=== PATIENT | female | born 1945 | race Caucasian/White ===

== ENCOUNTER 2016-10-05 09:20 | Inpatient (IN) | payer MEDICARE ==
[~2016-10-05] VITALS: Ht 165.1 cm; Wt 119.1 kg
[~2016-10-05 09:20] MED LIST: BAYER CHEWABLE81 MG PO; BRILINTA90 MG PO; CALAN80 MG PO; FIRST-TESTOSTER60 G1 TP; LASIX40 MG PO; LEVAQUIN750 MG PO; LISINOPRIL10 MG PO; MEDROL DOSE PACK4 MG PO; PRILOSEC10 MG PO; SYMBICORT 16010.2 GM INH
[2016-10-05 10:37] LABS: BASOPHILS 0.5 % (0.0-2.0); EOSINOPHILS 3.4 % (0-7); HEMATOCRIT 40.6 % (36.0-48.0); HEMOGLOBIN 13.2 g/dL (12-16); IMMATURE GRANULOCYTES 0.2 % (0-5); LYMPHOCYTES 16.6 % (15-50); MCH 30.6 pg (26.0-34.0); MCHC 32.5 g/dL (31.0-37.0); MEAN PLATELET VOLUME 9.8 fL (7.4-10.4); MONOCYTES 11.4 % (2-11); NEUTROPHILS 67.9 % (40-80); PLATELET COUNT 169 10x3/uL (130-400); RBC 4.32 10x6/uL (4.00-5.40); WBC 4.4 10x3/uL (4.8-10.8)
[2016-10-05 11:03] LABS: ALBUMIN 3.6 g/dL (3.4-5.0); ALKALINE PHOSPHATASE 105 U/L (46-116); ALT (SGPT) 38 U/L (10-68); CALC OSMOLALITY 281 mosm/kg (275-300); CARBON DIOXIDE 30.3 mmol/L (21.0-32.0); CHLORIDE - SERUM 105 mmol/L (98-107); CREATININE - SERUM 0.8 mg/dL (0.6-1.3); GLUCOSE 93 mg/dL (74-106); POTASSIUM - SERUM 3.9 mmol/L (3.5-5.1); PROTEIN - SERUM 7.6 g/dL (6.4-8.2); SODIUM 142 mmol/L (136-145); UREA NITROGEN 10 mg/dL (7-18); eGFR NON AFRICAN AMERICAN 75 mL/min (90-120)
[2016-10-05 11:28] LABS: PRO BNP 93 pg/mL (0-125); TROPONIN-I < 0.017 ng/mL (0.000-0.060)
--- NOTE | 2016-10-05 14:24 | NUR ---
ALERT AND ORIENTED X4. ARRIVE TO ROOM VIA WHEELCHAIR FROM ER ACCOMPANIED BY FAMILY AND STAFF. AMBULATES TO BED WITH OUT ASSISTANCE. GAIT STEADY. O2 SAT DROPS TO HIGH 80s WHEN STANDING. COMPLAINS OF HEADACHE AND PRESSURE IN CHEST. SOLUMEDROL GIVEN IN ER. IV RT HAND SL. CONTINUE ADMISSION PROCESS.
[2016-10-05 15:15] VITALS: BP 151/71; BMI 43.1
[2016-10-05 16:12] VITALS: BP 151/76
[2016-10-05 20:00] VITALS: BP 155/76
[2016-10-06] VITALS: BP 104/57
[2016-10-06 07:58] VITALS: BP 145/71
--- NOTE | 2016-10-06 11:41 | NUR ---
Patient Name: KAREEM BOOGIE Admission Status: ER Accout number: [id number] Admission Date: 10-05-2016 : 1945 Admission Diagnosis: Attending: KATJA Current LOS: 1 Anticipated DC Date: Planned Disposition: Home Primary Insurance: MEDICARE A & B Discharge Planning Comments: * Is the patient Alert and Oriented? Yes 0 * How many steps to enter\exit or inside your home? 4 W/RAILS 0 * PCP DR. CARRION 0 * Pharmacy [facility] 0 * Preadmission Environment Home with Family 0 * ADLs Independent 0 * Equipment Nebulizer Oxygen 0 Walker 0 * Other Equipment PORTABLE OXYGEN ONLY [employer]MENT PROVID[employer] 0 * List name and contact numbers for known caregivers / representatives who currently or will assist patient after discharge: DANIA VALDEZ, DAUGHTER, QUINN MEZA, DAUGHTER, 0 * Community resources currently utilized None 0 * Please name any agencies selected above. NONE 0 * Additional services required to return to the preadmission environment? No 0 * Can the patient safely return to the preadmission environment? Yes 0 * Has this patient been hospitalized within the prior 30 days at any hospital? No 0 CM MET WITH PT IN ROOM TO DISCUSS DISCHARGE PLANNING AND NEEDS. PT REPORTS LIVING AT HOME INDEPENDENTLY WITH HER ADULT DAUGHTER. PT HAS A WALKER, NEBULIZER AND PORTABLE OXYGEN PROVIDED BY [employer]. PT HAS HAD AN OVERNIGHT PULSE OXIMETRY TEST BY [employer] TO SEE IF PT QUALIFIES FOR HOME OXYGEN CONCENTRATOR AND SHE IS WAITING ON THE RESULTS TO BE DOWNLOADED FROM THE TEST. PT DID HAVE [facility] BUT ADMITTED TO HOSPITAL ON THE DAY OF HER HOME HEALTH DISCHARGE. CM DISCUSSED AVAILABILITY OF HOME HEALTH, REHAB SERVICES AND MEDICAL EQUIPMENT. PT DENIES DISCHARGE NEEDS, REPORTS THAT SHE DID NOT FIND HOME HEALTH TO BE HELPFUL. PT REPORTS SONE OF HER DAUGHTERS WILL PICK HER UP FOR DISCHARGE HOME. PT PLANS TO DISCHARGE HOME WITH ASSISTANCE OF DAUGHTER, DENIES DISCHARGE NEEDS AT THIS TIME. CM TO FOLLOW AND ASSIST NEEDED. Clinical Data Assistant: Raman Johnson
[2016-10-06 12:18] VITALS: BP 111/46
[2016-10-06 12:33] VITALS: Ht 165.1 cm; Wt 119.1 kg
[2016-10-06 16:16] VITALS: BP 131/57
[2016-10-06 21:15] VITALS: BP 134/66
[2016-10-06 23:00] VITALS: BP 115/55
--- NOTE | 2016-10-07 07:45 | NUR ---
INTRODUCED MYSELF TO PT PRIMARY RN FOR TODAYS SHIFT. PT IS A&O X4. RESTING QUIETLY IN BED. RR SLIGHTLY LABORED WITH NC @2L IN PLACE. LUNGS ARE CTA WITH WHEEZING NOTED TO THE LEFT SIDE AND SLIGHT RUB TO THE RIGHT NOTED. PT DENIES ANY PAIN OR CURRENT NEEDS. SHIFT ASSESSMENT COMPLETED. CL IN REACH. WILL CPOC.
[2016-10-07 08:00] VITALS: BP 128/64
[2016-10-07 12:33] VITALS: BP 138/79
--- NOTE | 2016-10-07 13:00 | NUR ---
PT SITTING UP IN BED RESTING COMFORTABLY. DENIES ANY CURRENT PAIN OR NEEDS AT THIS TIME. CL IN REACH. WILL CTM.
[2016-10-07 16:00] VITALS: BP 138/71
--- NOTE | 2016-10-07 17:03 | NUR ---
PT RESTING IN BED WATCHING TV WITH FAMILY AT BEDSIDE. RR NONLABORED WITH NC @3L IN PLACE. PT DENIES ANY CURRENT PAIN OR NEEDS AT THIS TIME. CL IN REACH. WILL CPOC.
[2016-10-07 19:49] VITALS: BP 140/70
[2016-10-08 00:42] VITALS: BP 134/68
[2016-10-08 04:47] VITALS: BP 143/69
[2016-10-08 07:00] LABS: CALC OSMOLALITY 289 mosm/kg (275-300); CALCIUM 8.8 mg/dL (8.5-10.1); CARBON DIOXIDE 29.7 mmol/L (21.0-32.0); CHLORIDE - SERUM 106 mmol/L (98-107); CREATININE - SERUM 0.7 mg/dL (0.6-1.3); POTASSIUM - SERUM 3.9 mmol/L (3.5-5.1); SODIUM 143 mmol/L (136-145); UREA NITROGEN 17 mg/dL (7-18); eGFR NON AFRICAN AMERICAN 88 mL/min (90-120)
[2016-10-08 07:01] LABS: GLUCOSE 145 mg/dL (74-106)
[2016-10-08 07:02] LABS: BASOPHILS 0 % (0.0-2.0); EOSINOPHILS 0 % (0-7); HEMATOCRIT 40.5 % (36.0-48.0); HEMOGLOBIN 12.8 g/dL (12-16); IMMATURE GRANULOCYTES 0.3 % (0-5); LYMPHOCYTES 7.4 % (15-50); MCH 30.3 pg (26.0-34.0); MCHC 31.6 g/dL (31.0-37.0); MEAN PLATELET VOLUME 9.9 fL (7.4-10.4); NEUTROPHILS 89.3 % (40-80); PLATELET COUNT 194 10x3/uL (130-400); RBC 4.22 10x6/uL (4.00-5.40); RDW 15.3 % (11.5-14.5); WBC 9.8 10x3/uL (4.8-10.8)
--- NOTE | 2016-10-08 07:30 | NUR ---
RECEIVED PT IN BED AAOX4 RESP UNLABORED DENIES ANY NEEDS OR DISCOMFORT
[2016-10-08 08:22] VITALS: BP 178/79
--- NOTE | 2016-10-08 10:21 | NUR ---
Patient Name: KAREEM BOOGIE Encounter No: [id number] : 1945 Primary Insurance: MEDICARE A & B Anticipated DC Date: Planned Disposition: Home DCP follow-up note: CM RECEIVED CALL FROM [facility], PT'S OVERNIGHT PULSEOX TESTING HAS BEEN DOWNLOADED AND SENT TO PT'S PRIMARY CARE DOCTOR, [facility] HAS NOT RECEIVED ANY ORDERS FROM DOCTOR REGARDING OXYGEN ARRANGEMENT AT THIS TIME. CM NOTIFIED PT WHO WILL FOLLOW UP WITH DR. CARRION. PT PLANS TO DISCHARGE HOME WITH ASSISTANCE OF DAUGHTER, DENIES DISCHARGE NEEDS AT THIS TIME. CM TO FOLLOW AND ASSIST NEEDED. Manager Education: Raman Johnson
[2016-10-08 11:00] VITALS: BP 137/66
--- NOTE | 2016-10-08 14:04 | NUR ---
Nutrition follow-up: Diet: Low sodium PO intake 100% of last 6 meals Labs reviewed Wt: 258# PO intake is good at this time. RDN following.
[2016-10-08 16:00] VITALS: BP 147/73
[2016-10-08 19:41] VITALS: BP 138/84
[2016-10-09 01:20] VITALS: BP 144/78
[2016-10-09 08:02] VITALS: BP 171/84
[2016-10-09 11:09] VITALS: BP 151/68
--- NOTE | 2016-10-09 11:59 | NUR ---
PT SITTING UP IN BED WATCHING TV. RR NONLABORED. SISTER AT BEDSIDE. PT DENIES ANY CURRENT PAIN OR NEEDS. CL IN REACH. WILL CPOC.
--- NOTE | 2016-10-09 14:45 | NUR ---
PTS R.HAND IV INFILTRATED. NEW 22 GUAGE IV INSERTED X1 ATTEMPT VIA L.HAND. DRSG CDI AND SWAB CAPS IN USE. PT VOICED IMMEDIATE RELIEF AND DENIES ANY FURTHER NEEDS AT THIS TIME. CL IN REACH. WILL CTM.
[2016-10-09 14:46] VITALS: BP 149/68
--- NOTE | 2016-10-09 18:00 | NUR ---
INITITATED PTS IVPB ANBX. INFUSING OVER AN HOUR VIA L.HAND PIV. DRSG CDI AND SWAB CAPS IN USE. PT SITTING UP IN BEDSIDE CHAIR VISITING WITH HER SISTER. DENIES ANY CURRENT PAIN OR NEEDS. CL IN REACH. WILL CTM.
[2016-10-09 20:20] VITALS: BP 147/74
[2016-10-10] VITALS (7 sets, daily range): BP systolic 117–168; BP diastolic 60–81
[2016-10-10 05:10] LABS: BASOPHILS 0.2 % (0.0-2.0); EOSINOPHILS 0 % (0-7); HEMATOCRIT 39.8 % (36.0-48.0); HEMOGLOBIN 12.6 g/dL (12-16); IMMATURE GRANULOCYTES 1.1 % (0-5); LYMPHOCYTES 11.8 % (15-50); MCH 29.9 pg (26.0-34.0); MCHC 31.7 g/dL (31.0-37.0); MCV 94.5 fL (80.0-100.0); MEAN PLATELET VOLUME 9.7 fL (7.4-10.4); MONOCYTES 4.3 % (2-11); NEUTROPHILS 82.6 % (40-80); PLATELET COUNT 192 10x3/uL (130-400); RBC 4.21 10x6/uL (4.00-5.40); RDW 14.9 % (11.5-14.5)
[2016-10-10 05:18] LABS: WBC 6.5 10x3/uL (4.8-10.8)
[2016-10-10 05:23] LABS: CALC OSMOLALITY 289 mosm/kg (275-300); CALCIUM 8.2 mg/dL (8.5-10.1); CHLORIDE - SERUM 106 mmol/L (98-107); CREATININE - SERUM 0.7 mg/dL (0.6-1.3); GLUCOSE 149 mg/dL (74-106); POTASSIUM - SERUM 3.5 mmol/L (3.5-5.1); SODIUM 143 mmol/L (136-145); UREA NITROGEN 17 mg/dL (7-18); eGFR NON AFRICAN AMERICAN 88 mL/min (90-120)
--- NOTE | 2016-10-10 10:45 | NUR ---
ASSISTED PT INTO SHOWER. PT DENIES ANY FURTHER NEEDS. SISTER AT BEDSIDE TO HELP. CL IN REACH. WILL CTM.
--- NOTE | 2016-10-10 13:10 | NUR ---
PT SITTING UP IN BED RESTING QUIETLY JUST FINISHED LUNCH. RR NONLABORED. DENIES ANY CURRENT NEEDS. CL IN REACH. WILL CTM.
--- NOTE | 2016-10-10 17:32 | NUR ---
ADMINISTERED SOLU-MEDROL IV PUSH SLOWLY OVER 3 MINS THEN FLUSHED WITH NS FLUSH. PT DENIES ANY BURNING OR PAIN WITH IV SITE. DRSG CDI AND SWAB CAPS IN USE. PT JUST FINISHED DINNER AND STATES IT WAS GOOD. PT DOES C/O SLIGHT BLOATING REQUESTING A PRN STOOL SOFTNER, WILL NOTIFY DOCTOR. PT DENIES ANY FURTHER NEEDS AT THIS TIME. CL IN REACH, BED IN LOWEST, SIDE RAILS X2. WILL CTM.
--- NOTE | 2016-10-10 20:54 | NUR ---
PT COUGHING AND REQUESTS SOMETHING FOR COUGH. PHENERGAN C/ CODEINE GIVEN AT THIS TIME. WILL MONITOR.
--- NOTE | 2016-10-10 21:39 | NUR ---
PT LAYING IN BED, WATCHING TV. NO NEEDS OR C/O VOICED. WILL CONT TO MONITOR.
[2016-10-11 04:00] VITALS: BP 150/71
[2016-10-11 08:00] VITALS: BP 151/67
--- NOTE | 2016-10-11 09:18 | NUR ---
ADMINISTERED AM MEDICATIONS. PT IS NOT FEELING WELL THIS MORNING. SHE C/O SHARP TENSION JOLLEY AND R.KNEE PAIN. PROVIDED PT WITH TYLENOL. PT STATES SHE WAS UP GOING TO [place] AND GOT VERY SOB AND HAS CHRONIC R.KNEE INFLAMMATION THAT STARTED BOTHERING HER. PT TURNED DOWN THERAPY FOR WALK BUT STATED SHE WILL TRY LATER. NC @2L IN PLACE. LUNG SOUNDS STILL WHEEZING AND RUB NOTED BUT SEEMS TO BE CLEARING. L.HAND PIV HAS DRSG CDI AND SWAB CAPS IN USE. PT STATES SHE NO LONGER NEEDS STOOL SOFTNER AND HAD TWO WELL FORMED SOFT BOWEL MOVEMENTS EARLIER THIS MORNING. PT DENIES ANY FURTHER NEEDS AT THIS TIME. CL IN REACH, BED IN LOWEST, SIDE RAILS X2. WILL CPOC.
[2016-10-11 11:53] VITALS: BP 133/67
--- NOTE | 2016-10-11 13:07 | NUR ---
PT AMBULATED WELL WITH THERAPY USING A WALKER R/T R.KNEE PAIN BUT USUALLY AMBULATES WITHOUT WALKER OR ASSIST. THERAPY SIGNING OFF PT DOESNT NEED ANY ASSISTANCE. PT BACK IN ROOM RESTING AND DENIES ANY NEEDS AT THIS TIME. CL IN REACH. WILL CTM.
[2016-10-11 15:57] VITALS: BP 126/60
--- NOTE | 2016-10-11 19:20 | NUR ---
INITIAL ROUNDS MADE. PT SITTING UP IN CHAIR AT BEDSIDE WATCHING TV. DENIES NEEDS OR C/O AT THIS TIME. WILL CONT TO MONITOR.
[2016-10-11 20:36] VITALS: BP 174/68
[2016-10-12 01:24] VITALS: BP 153/73
--- NOTE | 2016-10-12 02:00 | NUR ---
RESTING WELL WITH EYES CLOSED, NO DISTRESS NOTED. WILL CONT TO MONITOR.
--- NOTE | 2016-10-12 05:34 | NUR ---
IV IN LEFT HAND INFILRATED. REMOVED WITH CATH TIP INTACT. RESITED IV TO RIGHT HAND 22G X1 STICK.
[2016-10-12 06:26] VITALS: BP 161/70
--- NOTE | 2016-10-12 07:30 | NUR ---
RECEIVED PT SITTING ON SIDE OF BED DENIES ANY NEEDS OR DISCOMFORT NAD NOTED WILL CONTINUE TO MONITOR
[2016-10-12 07:47] VITALS: BP 128/56
[2016-10-12 11:10] VITALS: BP 131/58
[2016-10-12 16:27] VITALS: BP 124/65
--- NOTE | 2016-10-12 19:20 | NUR ---
INITIAL ROUNDS MADE. PT SITTING UP IN CHAIR AT BEDSIDE. NO NEEDS OR C/O AT THIS TIME. CALL LIGHT IN REACH. WILL CONT TO MONITOR.
[2016-10-12 20:00] VITALS: BP 158/62
[2016-10-13] VITALS: BP 143/71
--- NOTE | 2016-10-13 00:30 | NUR ---
WEB ENGINEER AT BEDSIDE FOR VS. NEEDS ADDRESSED. CALL LIGHT IN REACH. WILL CONT TO MONITOR.
--- NOTE | 2016-10-13 02:57 | NUR ---
RESTING WELL WITH EYES CLOSED, NO DISTRESS NOTED. CONT TO MONITOR.
[2016-10-13 04:00] VITALS: BP 150/77
--- NOTE | 2016-10-13 07:30 | NUR ---
RECEIVED PT IN CHAIR AAOX4 RESP UNLABORED DENIES ANY NEEDS OR DISCOMFORT AT THIS TIME
[2016-10-13] MEDS ORDERED: IPRAT-ALBUT 0.5-3 ML INH (07:36)
[2016-10-13] MEDS ORDERED: BROVANA15 MCG/2 M INH (07:36)
[2016-10-13] MEDS ORDERED: PULMICORT0.5 MG/21 UPD (07:37)
[2016-10-13] MEDS ORDERED: MUCINEX DM ER1 EAC1 PO (07:38)
[2016-10-13] MEDS ORDERED: PROMETHAZINE W473 M1 PO (07:38)
[2016-10-13] MEDS ORDERED: SINGULAIR10 MG PO (07:38)
[2016-10-13] MEDS ORDERED: MEDROL DOSE PACK4 MG PO (07:40)
[2016-10-13 07:53] VITALS: BP 123/72
--- NOTE | 2016-10-13 09:02 | NUR ---
Patient Name: KAREEM BOOGIE Encounter No: [id number] : 1945 Primary Insurance: MEDICARE A & B Anticipated DC Date: 10-13-2016 Planned Disposition: Home DCP follow-up note: CM RECEIVED DISCHARGE ORDER WELL OXYGEN ORDERS FOR HOME AND PORTABLE OXYGEN. CM CALLED [facility], , SPOKE TO MACO WHO REPORTED THAT PT CURRENTLY HAS PORTABLE OXYGEN AT HOME AND [facility] HAS RECEIVED ORDERS FOR HOME CONCENTRATOR FROM DR. CARRION'S OFFICE. [facility] WILL ARRANGE HOME OXYGEN CONCENTRATOR DELIVERY TO PT'S HOME THIS MORNING. MACO REPORTS SHE NEEDS NO FURHTER ORDERS OR PRESCRIPTIONS / SIGNED ORDERS FROM HOSPITAL OR DOCTOR. CM SPOKE TO PT IN ROOM. CM PROVIDED THE ABOVE INFORMATION. PT REPORTS HER DAUGHTER TO BE HOME FOR HOME CONCENTRATOR DELIVERY AND HER DAUGHTER WILL BRING PORTABLE OXYGEN AND TRANSPORT PT HOME AT DISCHARGE. CM DISCUSSED AVAILABILITY OF HOME HEALTH SERVICES, PT DENIED NEED, REPORTS HE HAS HER DAUGHTER WHO ASSISTS HER IF NEEDED, AT HOME. CM DISCUSSED HOW TO CONTACT HER PCP IF SHE HAS CHANGES AT HOME OR FEELS SHE NEEDS HOME HEALTH AFTER DISCHARGE, PT REPORTED UNDERSTANDING. SEAMING MACHINE OPERATOR NURSE NOTIFIED. Raman Johnson, CASE MANAGEMENT
--- NOTE | 2016-10-13 13:30 | NUR ---
DCD SALINE LOCK TO RT HAND WITH 20 GA IV CATHETER INTACT NO REDNESS OR EDEMA NOTED TO SITE REVIEWED DISCHARGE INSTRUCTIONS WITH PT STATES UNDERSTANDING COPY GIVEWN PT DISCHARGED HOME LEFT UNIT VIA W/C IN STABLE CONDITION WITH ALL PERSONAL BELONGINGS
--- NOTE | 2016-11-10 08:17 | EC ---
PATIENT:KAREEM BOOGIE DATE OF SERVICE: 10/05/16 SEX: F MEDICAL RECORD: [id number] DATE OF : [birth year] LOCATION:D.M2 D.211 AGE OF PATIENT: 71 ADMISSION DATE: 10/05/16 REFERRING PHYSICIAN: INTERPRETING PHYSICIAN: MARSHA JOHNSON M.D. ECHOCARDIOGRAM REPORT ECHO CHARGES 4 ECHO COMPLETE CLINICAL DIAGNOSIS: CHEST PAIN HX CAD/STENTS X2 AND HTN ECHOCARDIOGRAPHIC MEASUREMENTS (adult normal given) AC root (d.<3.7cm) 3.9 LV Septum d (<1.2 cm> 1.4 Valve Excursion 2.1 LV Septum (systole) 1.5 Left Atria (s.<4.0cm> 3.7 LVPW d(<1.2cm) 1.3 RV (d.<2.3cm) 4.1 LVPW (sytole) 1.5 LV diastole(<5.6CM) 5.2 MV E-F(>70mm/sec) LV systole 3.6 LVOT Diameter 1.9 MV exc.(>10mm) 1.6 Est.ejection fraction (50-75%) Pericardial Effusion N DOPPLER: LVIT A 85.0 E 97.0 LA RVSP 22 LVOT 114 AOP1/2T Asc. Ao 151 RVOT 105 RA PA 139 AV Gradient Peak 9.10 AV Mean 4.85 AV Area 2.4 MV Gradient Peak 7.26 MV Mean 2.43 MV Area COMMENTS: Warp Tension Tester: Salena MERINO Chemical Preparer:2 Dr. Johnson TAPE# PACS DATE OF SERVICE: 10/06/2016 Echocardiogram Report REFERRING PHYSICIAN: Molina Tello MD. INDICATION: Chest pain. DESCRIPTION: Left ventricle demonstrates left ventricular hypertrophy. No wall motion abnormalities are seen. Estimated ejection fraction is 50% to 55%. ECHOCARDIOGRAM REPORT [id number] KAREEM BOOGIE Mitral valve leaflets are slightly thickened. There is moderate regurgitation seen. Left atrium is mildly dilated. The aortic valve is trileaflet. There is no stenosis or regurgitation seen. Right ventricle is mildly dilated. Tricuspid valve is structurally normal. There is mild regurgitation seen. Right atrium is normal size. There is no pericardial effusion noted. IMPRESSION: 1. Left ventricular hypertrophy with preserved ejection of 50% to 55%. 2. Moderate mitral regurgitation. 3. Mild tricuspid regurgitation. TRANSINT:[id number] Voice Confirmation ID: [id number] DOCUMENT ID: [id number] MARSHA JOHNSON M.D. at 0817 CC: [id number] DICTATION DATE: 10/07/16728 BOTTOMING MACHINE OPERATOR: 10/07/16 2156 DIS IN 10/13/16 [facility] [address] [id number]
== END 2016-10-13 13:30 | disposition home or self-care (01) | DRG 190 ==
LOC: D.ER 09:20 → D.M2 12:23
PROVIDERS: Family Medicine; Internal Medicine Pulmonary Disease; ADMIT Family Medicine
DX: J44.0 Chronic obstructive pulmonary disease with (acute) lower respiratory infection (principal); J18.9 Pneumonia, unspecified organism; J98.11 Atelectasis; Z68.41 Body mass index [BMI] 40.0-44.9, adult; J44.1 Chronic obstructive pulmonary disease with (acute) exacerbation; I25.10 Atherosclerotic heart disease of native coronary artery without angina pectoris; I10 Essential (primary) hypertension; J20.9 Acute bronchitis, unspecified; E66.01 Morbid (severe) obesity due to excess calories; K21.9 Gastro-esophageal reflux disease without esophagitis; J30.9 Allergic rhinitis, unspecified; I08.1 Rheumatic disorders of both mitral and tricuspid valves; Z95.5 Presence of coronary angioplasty implant and graft; Z87.891 Personal history of nicotine dependence

== ENCOUNTER 2017-08-31 13:12 | Emergency (ER) | payer MEDICARE ==
[2016-10-06 12:33] VITALS: BMI 42.9
[~2017-08-31 13:12] MED LIST changes: +BROVANA15 MCG/2 M INH; +IPRAT-ALBUT 0.5-3 ML INH; +MUCINEX DM ER1 EAC1 PO; +PROMETHAZINE W473 M1 PO; +PULMICORT0.5 MG/21 UPD; +SINGULAIR10 MG PO
[2017-08-31 14:12] LABS: BASOPHILS 0.7 % (0-2); EOSINOPHILS 6.8 % (0-7); HEMATOCRIT 41.3 % (36.0-48.0); HEMOGLOBIN 13.4 g/dL (12-16); IMMATURE GRANULOCYTES 0.2 % (0-5); LYMPHOCYTES 20.2 % (15-50); MCH 30.3 pg (26.0-34.0); MCHC 32.4 g/dL (31.0-37.0); MCV 93.4 fL (80.0-100.0); MEAN PLATELET VOLUME 9.6 fL (7.4-10.4); MONOCYTES 4.9 % (2-11); NEUTROPHILS 67.2 % (40-80); PLATELET COUNT 190 10x3/uL (130-400); RBC 4.42 10x6/uL (4.00-5.40); RDW 14.3 % (11.5-14.5); WBC 5.7 10x3/uL (4.8-10.8)
[2017-08-31 14:25] LABS: ALBUMIN 3.5 g/dL (3.4-5.0); ALKALINE PHOSPHATASE 109 U/L (46-116); ALT (SGPT) 32 U/L (10-68); BILIRUBIN - TOTAL 0.54 mg/dL (0.2-1.3); CALC OSMOLALITY 282 mosm/kg (275-300); CHLORIDE - SERUM 105 mmol/L (98-107); CREATININE - SERUM 0.7 mg/dL (0.6-1.3); POTASSIUM - SERUM 3.7 mmol/L (3.5-5.1); PROTEIN - SERUM 7.2 g/dL (6.4-8.2); SODIUM 142 mmol/L (136-145); UREA NITROGEN 13 mg/dL (7-18); eGFR NON AFRICAN AMERICAN 87 mL/min (90-120)
[2017-08-31 14:26] LABS: GLUCOSE 101 mg/dL (74-106)
== END 2017-08-31 16:47 | disposition home or self-care (01) ==
LOC: D.ER 13:12
PROVIDERS: Family Medicine
DX: J44.1 Chronic obstructive pulmonary disease with (acute) exacerbation (principal); I10 Essential (primary) hypertension

== ENCOUNTER 2018-06-15 09:59 | Observation (INO) | payer MEDICARE ==
[~2018-06-15] VITALS: Ht 165.1 cm; Wt 120.9 kg
[2018-06-15] VITALS (7 sets, daily range): BP systolic 117–170; BP diastolic 48–90; Ht 165.1 cm; Wt 120.9 kg
--- NOTE | ~2018-06-15 | MORECARE ---
CASE MANAGEMENT DISCHARGE SUMMARY PATIENT: KAREEM BOOGIE UNIT: [id number] ADM DATE: 06/15/18 AGE: 73 : [birth year] SEX: F ROOM/BED: D[place] [place] AUTHOR: MAE CROOK PHYSICIAN: REFERRING PHYSICIAN: MARSHA READ M.D. DATE OF SERVICE: 06/16/18 Discharge Plan Patient Name: KAREEM BOOGIE Facility: [facility]:[place] : 1945 Planned Disposition: Home Anticipated Discharge Date: Discharge Date: Expected LOS: Initial Reviewer: [email or web address] Initial Review Date: 06/15/2018 Generated: 06/16/18 8:38 am Comments DCP- Discharge Planning Updated by [email or web address]: Michaela Lazar on 06/15/18 3:[address] CM met with patient and daughter, in ER/room to discuss dc needs/plans. Patient provided verbal consent to discuss current and ongoing needs with/in the presence of Keren Skinner (dtr) #[phone] . CM discussed availability of Home Health, Rehab Services and Medical Equipment. PCP: Dr. Tello. [facility] HHS: None. DME: Home & portable O2. Emergency Contact: Keren Skinner (call first) [phone], Jaclyn Harris (younger dtr) [phone]. Patient states she feels safe returning to the home environment and at this time, she does not feel she requires additional services upon discharge. Patient states she would like to have a shower chair, but does not have the resources. Encouraged patient/daughter to visit [facility] for low cost DME. CM will continue to follow and assist with dc needs/plans PRN. Michaela Lazar RN CM DCPIA - Discharge Planning Initial Assessment Updated by [email or web address]: Michaela Lazar on 06/15/18 4:12 pm * Is the patient Alert and Oriented? Yes * How many steps to enter\exit or inside your home? * PCP Dr. Tello * Pharmacy [facility] * Preadmission Environment Home with Family * ADLs Independent * Equipment Oxygen * Other Equipment Home & Portable O2 States no other equipment Would like to have a Shower chair * List name and contact numbers for known caregivers / representatives who currently or will assist patient after discharge: Kerenmartina Skinner (1st dtr) [phone] Jaclyn Harris (2nd dtr) [phone] * Verbal permission to speak to the caregivers and representatives has been obtained from the patient. Yes * Community resources currently utilized None * Please name any agencies selected above. NA * Additional services required to return to the preadmission environment? No * Can the patient safely return to the preadmission environment? Yes * Has this patient been hospitalized within the prior 30 days at any hospital? No Last DP export: 06/15/18 3:33 Patient Name: KAREEM BOOGIE Page [id number] at 0738 All edits/amendments must be made on the electronic document DICTATION DATE: 06/16/18737 FOUNDER AND PRESIDENT: CHAPARRO 06/16/18737 RPT#: [id number] DC DATE: STATUS: ADM IN [facility] [address] [place] [address] END OF REPORT
--- NOTE | ~2018-06-15 | MORECARE ---
CASE MANAGEMENT DISCHARGE SUMMARY PATIENT: KAREEM BOOGIE UNIT: [id number] ADM DATE: 06/15/18 AGE: 73 : 46 SEX: F ROOM/BED: D.[facility] AUTHOR: MAE CROOK PHYSICIAN: REFERRING PHYSICIAN: MARSHA READ M.D. DATE OF SERVICE: 06/15/18 Discharge Plan Patient Name: KAREEM BOOGIE Facility: [facility]:[place] : 1945 Planned Disposition: Home Anticipated Discharge Date: Discharge Date: Expected LOS: Initial Reviewer: [email or web address] Initial Review Date: 06/15/2018 Generated: 06/15/18 5:13 pm DCPIA - Discharge Planning Initial Assessment Updated by [email or web address]: Michaela Lazar on 06/15/18 4:12 pm * Is the patient Alert and Oriented? Yes * How many steps to enter\exit or inside your home? * PCP Dr. Tello * Pharmacy [facility] * Preadmission Environment Home with Family * ADLs Independent * Equipment Oxygen * Other Equipment Home & Portable O2 States no other equipment Would like to have a Shower chair * List name and contact numbers for known caregivers / representatives who currently or will assist patient after discharge: Keren Skinner (1st dtr) [phone] Jaclyn Harris (2nd dtr) [phone] * Verbal permission to speak to the caregivers and representatives has been obtained from the patient. Yes * Community resources currently utilized None * Please name any agencies selected above. NA * Additional services required to return to the preadmission environment? No * Can the patient safely return to the preadmission environment? Yes * Has this patient been hospitalized within the prior 30 days at any hospital? No Patient Name: KAREEM BOOGIE Page [id number] at 1613 All edits/amendments must be made on the electronic document DICTATION DATE: 06/15/18 1613 PIPE FITTER MAINTENANCE: CHAPARRO 06/15/18 161 RPT#: [id number] DC DATE: STATUS: ADM IN [facility] [address] [place] [address] END OF REPORT
--- NOTE | ~2018-06-15 | MORECARE ---
CASE MANAGEMENT DISCHARGE SUMMARY PATIENT: KAREEM BOOGIE UNIT: [id number] ADM DATE: 06/15/18 AGE: 73 : 46 SEX: F ROOM/BED: D.[facility]3 AUTHOR: MAE CROOK PHYSICIAN: REFERRING PHYSICIAN: MARSHA READ M.D. DATE OF SERVICE: 06/15/18 Discharge Plan Patient Name: KAREEM BOOGIE Facility: [facility]:[place] : 1945 Planned Disposition: Home Anticipated Discharge Date: Discharge Date: Expected LOS: Initial Reviewer: [email or web address] Initial Review Date: 06/15/2018 Generated: 06/15/18 5:33 pm Comments DCP- Discharge Planning Updated by [email or web address]: Michaela Lazar on 06/15/18 3:[address] CM met with patient and daughter, in ER/room to discuss dc needs/plans. Patient provided verbal consent to discuss current and ongoing needs with/in the presence of Keren Skinner (dtr) #[phone] . CM discussed availability of Home Health, Rehab Services and Medical Equipment. PCP: Dr. Tello. [facility] HHS: None. DME: Home & portable O2. Emergency Contact: Keren Skinner (call first) [phone], Jaclyn Harris (younger dtr) [phone]. Patient states she feels safe returning to the home environment and at this time, she does not feel she requires additional services upon discharge. Patient states she would like to have a shower chair, but does not have the resources. Encouraged patient/daughter to visit [facility] for low cost DME. CM will continue to follow and assist with dc needs/plans PRN. Michaela Lazar RN CM DCPIA - Discharge Planning Initial Assessment Updated by [email or web address]: Michaela Lazar on 06/15/18 4:12 pm * Is the patient Alert and Oriented? Yes * How many steps to enter\exit or inside your home? * PCP Dr. Tello * Pharmacy [facility] * Preadmission Environment Home with Family * ADLs Independent * Equipment Oxygen * Other Equipment Home & Portable O2 States no other equipment Would like to have a Shower chair * List name and contact numbers for known caregivers / representatives who currently or will assist patient after discharge: Kerenmartina Skinner (1st dtr) [phone] Jaclyn Harris (2nd dtr) [phone] * Verbal permission to speak to the caregivers and representatives has been obtained from the patient. Yes * Community resources currently utilized None * Please name any agencies selected above. NA * Additional services required to return to the preadmission environment? No * Can the patient safely return to the preadmission environment? Yes * Has this patient been hospitalized within the prior 30 days at any hospital? No Last DP export: 06/15/18 3:13 Patient Name: KAREEM BOOGIE Page 13425 at 1633 All edits/amendments must be made on the electronic document DICTATION DATE: 06/15/181632 CELL ATTENDANT: CHAPARRO 06/15/18 163 RPT#: [id number] DC DATE: STATUS: ADM IN [facility] [address] [place] [address] END OF REPORT
--- NOTE | ~2018-06-15 | MORECARE ---
CASE MANAGEMENT DISCHARGE SUMMARY PATIENT: KAREEM BOOGIE UNIT: [id number] ADM DATE: 06/15/18 AGE: 73 : 46 SEX: F ROOM/BED: D.2053 AUTHOR: ARMAAN,DOC PHYSICIAN: REFERRING PHYSICIAN: MARSHA READ M.D. DATE OF SERVICE: 06/16/18 Discharge Plan Patient Name: KAREEM BOOGIE Facility: [facility]:[place] : 1945 Planned Disposition: Home Anticipated Discharge Date: 06/16/18 Discharge Date: 06/16/2018 Expected LOS: 1 Initial Reviewer: [email or web address] Initial Review Date: 06/15/2018 Generated: 06/16/18 4:38 pm Comments DCP- Discharge Planning Updated by [email or web address]: Michaela Lazar on 06/15/18 3:[address] CM met with patient and daughter, in ER/room to discuss dc needs/plans. Patient provided verbal consent to discuss current and ongoing needs with/in the presence of Keren Skinner (dtr) #[phone] . CM discussed availability of Home Health, Rehab Services and Medical Equipment. PCP: Dr. Tello. Pharmacy: [facility]. HHS: None. DME: Home & portable O2. Emergency Contact: Keren Skinner (call first) [phone], Jaclyn Harris (younger dtr) [phone]. Patient states she feels safe returning to the home environment and at this time, she does not feel she requires additional services upon discharge. Patient states she would like to have a shower chair, but does not have the resources. Encouraged patient/daughter to visit [facility] for low cost DME. CM will continue to follow and assist with dc needs/plans PRN. Michaela Lazar RN CM DCPIA - Discharge Planning Initial Assessment Updated by [email or web address]: Michaela Lazar on 06/15/18 4:12 pm * Is the patient Alert and Oriented? Yes * How many steps to enter\exit or inside your home? * PCP Dr. Tello * Pharmacy [facility] * Preadmission Environment Home with Family * ADLs Independent * Equipment Oxygen * Other Equipment Home & Portable O2 States no other equipment Would like to have a Shower chair * List name and contact numbers for known caregivers / representatives who currently or will assist patient after discharge: Keren Skinner (1st dtr) [phone] Jaclyn Harris (2nd dtr) [phone] * Verbal permission to speak to the caregivers and representatives has been obtained from the patient. Yes * Community resources currently utilized None * Please name any agencies selected above. NA * Additional services required to return to the preadmission environment? No * Can the patient safely return to the preadmission environment? Yes * Has this patient been hospitalized within the prior 30 days at any hospital? No Last DP export: 06/16/18 6:38 Patient Name: KAREEM BOOGIE Page 48182 at 1538 All edits/amendments must be made on the electronic document DICTATION DATE: 06/16/181537 DRILLING SUPERVISOR: CHAPARRO 06/16/181537 RPT#: [id number] DC DATE:06/16/18 STATUS: DIS IN [facility] [address] [place] [address] END OF REPORT
[2018-06-15 10:50] LABS: BASOPHILS 0.3 % (0-2); EOSINOPHILS 3.7 % (0-7); HEMATOCRIT 39.6 % (36.0-48.0); HEMOGLOBIN 13.2 g/dL (12-16); IMMATURE GRANULOCYTES 0.3 % (0-5); LYMPHOCYTES 19.9 % (15-50); MCH 31.2 pg (26.0-34.0); MCHC 33.3 g/dL (31.0-37.0); MCV 93.6 fL (80.0-100.0); MEAN PLATELET VOLUME 9.5 fL (7.4-10.4); MONOCYTES 7.5 % (2-11); NEUTROPHILS 68.3 % (40-80); PLATELET COUNT 208 10x3/uL (130-400); RBC 4.23 10x6/uL (4.00-5.40); RDW 14.5 % (11.5-14.5)
[2018-06-15 10:59] LABS: APTT 25.9 SECONDS (22.8-39.4); INR 0.92 (0.85-1.17)
[2018-06-15 11:03] LABS: ALBUMIN 3.4 g/dL (3.4-5.0); ALKALINE PHOSPHATASE 102 U/L (46-116); ALT (SGPT) 43 U/L (10-68); BILIRUBIN - TOTAL 0.61 mg/dL (0.2-1.3); CALC OSMOLALITY 285 mosm/kg (275-300); CARBON DIOXIDE 33.1 mmol/L (21.0-32.0); CHLORIDE - SERUM 104 mmol/L (98-107); CREATININE - SERUM 0.7 mg/dL (0.6-1.3); GLUCOSE 128 mg/dL (74-106); POTASSIUM - SERUM 3.7 mmol/L (3.5-5.1); PROTEIN - SERUM 7.2 g/dL (6.4-8.2); SODIUM 143 mmol/L (136-145); UREA NITROGEN 11 mg/dL (7-18); eGFR NON AFRICAN AMERICAN 87 mL/min (90-120)
[2018-06-15 11:14] LABS: CKMB 4.5 U/L (0.0-3.6); CREATINE KINASE 235 UL (21-215); MAGNESIUM - SERUM 2.1 mg/dL (1.8-2.4); TROPONIN-I < 0.017 ng/mL (0.000-0.060)
[2018-06-15] MEDS ORDERED: VERAPAMIL HCL40 MG PO (17:24)
[2018-06-15] MEDS ORDERED: SYMBICORT 80-10.2 GM INH (17:27)
[2018-06-15] MEDS ORDERED: IPRAT-ALBUT 0.5-3 ML UPD (17:36)
[2018-06-16] VITALS: BP 102/50
[2018-06-16 05:57] VITALS: BP 110/63
[2018-06-16 07:48] VITALS: BP 134/55
[2018-06-16 08:51] LABS: CREATINE KINASE 171 UL (21-215); TROPONIN-I < 0.017 ng/mL (0.000-0.060)
[2018-06-17 17:12] LABS: CK - ISO (BB) 0 % (0); CK - ISO (CK TOTAL) 162 U/L (24-173); CK - ISO (CK-MB) 0 % (0-3); CK - ISO (CK-MM) 100 % (97-100); CK - ISO (MACRO TYPE 1) 0 % (Not Observed); CK - ISO (MACRO TYPE 2) 0 % (Not Observed)
== END 2018-06-16 12:49 | disposition home or self-care (01) ==
LOC: D.ER 09:59 → D.EDHOLD 14:37 → D.M2 14:37 → OBSVTIME 14:38 → D.M2 14:50
PROVIDERS: Emergency Medicine; Internal Medicine Cardiovascular Disease
DX: J44.1 Chronic obstructive pulmonary disease with (acute) exacerbation (principal); I25.110 Atherosclerotic heart disease of native coronary artery with unstable angina pectoris; Z95.5 Presence of coronary angioplasty implant and graft; I10 Essential (primary) hypertension; E66.01 Morbid (severe) obesity due to excess calories; Z68.41 Body mass index [BMI] 40.0-44.9, adult; I49.3 Ventricular premature depolarization

== ENCOUNTER → 2018-08-29 10:35 | Outpatient (CLI) | payer MEDICARE ==
[2018-06-15 17:27] VITALS: BMI 43.3
[~2018-08-29 10:35] MED LIST changes: +IPRAT-ALBUT 0.5-3 ML UPD; +SYMBICORT 80-10.2 GM INH; +VERAPAMIL HCL40 MG PO
== END | disposition home or self-care (01) ==
LOC: D.HCCARDIO 07-27 10:30
DX: R07.89 Other chest pain (principal)

== ENCOUNTER 2020-10-25 20:47 | Emergency (ER) | payer MEDICARE ==
[~2020-10-25] VITALS: Ht 165.1 cm; Wt 131.8 kg
[2020-10-25 20:51] VITALS: Ht 165.1 cm; Wt 131.8 kg
[2020-10-25 21:06] LABS: BASOPHILS 0.3 % (0-2); EOSINOPHILS 5.8 % (0-7); HEMATOCRIT 41.9 % (36.0-48.0); HEMOGLOBIN 13.5 g/dL (12-16); IMMATURE GRANULOCYTES 0.4 % (0-5); LYMPHOCYTES 23.6 % (15-50); MCH 30.5 pg (26.0-34.0); MCHC 32.2 g/dL (31.0-37.0); MCV 94.6 fL (80.0-100.0); MEAN PLATELET VOLUME 9.1 fL (7.4-10.4); MONOCYTES 5.5 % (2-11); NEUTROPHILS 64.4 % (40-80); PLATELET COUNT 211 10x3/uL (130-400); RBC 4.43 10x6/uL (4.00-5.40); RDW 14.9 % (11.5-14.5); WBC 9.3 10x3/uL (4.8-10.8)
[2020-10-25 21:16] LABS: APTT 27.9 SECONDS (22.8-39.4); INR 0.93 (0.85-1.17); PROTIME 11.5 SECONDS (11.6-15.0)
[2020-10-25 21:17] LABS: CALC OSMOLALITY 277 mosm/kg (275-300); CALCIUM 9.1 mg/dL (8.5-10.1); CARBON DIOXIDE 28.7 mmol/L (21.0-32.0); CHLORIDE - SERUM 100 mmol/L (98-107); CREATININE - SERUM 0.9 mg/dL (0.6-1.3); D-DIMER-QUANTITATIVE 1.61 ug/mLFEU (0.20-0.54); GLUCOSE 99 mg/dL (74-106); POTASSIUM - SERUM 3.7 mmol/L (3.5-5.1); SODIUM 139 mmol/L (136-145); UREA NITROGEN 13 mg/dL (7-18); eGFR NON AFRICAN AMERICAN 65 mL/min (90-120)
[2020-10-25 21:31] LABS: ALBUMIN 3.7 g/dL (3.4-5.0); ALKALINE PHOSPHATASE 140 U/L (30-120); ALT (SGPT) 57 U/L (10-68); BILIRUBIN - TOTAL 0.64 mg/dL (0.2-1.3); CKMB 0.4 U/L (0.0-3.6); CREATINE KINASE 127 UL (21-215); MAGNESIUM - SERUM 2.2 mg/dL (1.8-2.4); PRO BNP 32 pg/mL (0-125); PROTEIN - SERUM 8.2 g/dL (6.4-8.2)
[2020-10-25 21:32] LABS: TROPONIN-I < 0.017 ng/mL (0.000-0.060)
[2020-10-25 22:07] LABS: BILIRUBIN NEGATIVE (NEGATIVE); KETONE NEGATIVE (NEGATIVE); NITRITE NEGATIVE (NEGATIVE); UROBILINOGEN NORMAL mg/dL (< 2)
[2020-10-26] MEDS ORDERED: ZPAK PO (01:19)
[2020-10-26] MEDS ORDERED: STERAPRED DS 1010 MG PO (01:19)
[2020-10-26 01:46] VITALS: BP 147/69
== END 2020-10-26 01:47 | disposition home or self-care (01) ==
LOC: D.ER 20:47
PROVIDERS: Family Medicine
DX: J44.1 Chronic obstructive pulmonary disease with (acute) exacerbation (principal); J40 Bronchitis, not specified as acute or chronic; I10 Essential (primary) hypertension; Z72.0 Tobacco use

== ENCOUNTER 2021-01-18 21:52 | Emergency (ER) | payer MEDICARE ==
[~2021-01-18] VITALS: Ht 165.1 cm; Wt 129.5 kg
[~2021-01-18 21:52] MED LIST changes: +STERAPRED DS 1010 MG PO; +ZPAK PO
[2021-01-18 22:06] VITALS: Ht 165.1 cm; Wt 129.5 kg
[2021-01-18 22:27] LABS: BASOPHILS 0.9 % (0-2); EOSINOPHILS 5.9 % (0-7); HEMATOCRIT 39.7 % (36.0-48.0); HEMOGLOBIN 13.4 g/dL (12-16); LYMPHOCYTES 20.6 % (15-50); MCH 30.9 pg (26.0-34.0); MCHC 33.8 g/dL (31.0-37.0); MCV 91.3 fL (80.0-100.0); MEAN PLATELET VOLUME 7.2 fL (7.4-10.4); MONOCYTES 7.4 % (2-11); NEUTROPHILS 65.2 % (40-80); PLATELET COUNT 225 10x3/uL (130-400); RBC 4.35 10x6/uL (4.00-5.40); WBC 7.3 10x3/uL (4.8-10.8)
[2021-01-18 22:37] LABS: APTT 27.2 SECONDS (22.8-39.4); CALC OSMOLALITY 283 mosm/kg (275-300); CALCIUM 8.7 mg/dL (8.5-10.1); CARBON DIOXIDE 30.8 mmol/L (21.0-32.0); CHLORIDE - SERUM 105 mmol/L (98-107); CREATININE - SERUM 0.9 mg/dL (0.6-1.3); GLUCOSE 131 mg/dL (74-106); INR 1.07 (0.85-1.17); POTASSIUM - SERUM 3.4 mmol/L (3.5-5.1); PROTIME 12.8 SECONDS (11.6-15.0); SODIUM 142 mmol/L (136-145); UREA NITROGEN 11 mg/dL (7-18); eGFR NON AFRICAN AMERICAN 65 mL/min (90-120)
[2021-01-18 22:55] LABS: ALBUMIN 3.5 g/dL (3.4-5.0); ALKALINE PHOSPHATASE 124 U/L (30-120); ALT (SGPT) 53 U/L (10-68); CKMB 0.5 U/L (0.0-3.6); CREATINE KINASE 91 UL (21-215); PRO BNP 23 pg/mL (0-125); PROTEIN - SERUM 7.7 g/dL (6.4-8.2)
[2021-01-18 22:56] LABS: TROPONIN-I < 0.017 ng/mL (0.000-0.060)
[2021-01-18 23:22] LABS: INFLUENZA TYPE A NEGATIVE (NEGATIVE); INFLUENZA TYPE B NEGATIVE (NEGATIVE); SARS-CoV-2 ANTIGEN NEGATIVE- SARS-COV-2 (NEGATIVE)
[2021-01-19] MEDS ORDERED: PREDNISONE20 MG PO (03:17)
[2021-01-19] MEDS ORDERED: AUGMENTIN 875-11 TAB PO (03:17)
[2021-01-19] MEDS ORDERED: FLUTICASONE PRO16 GM NASAL (03:17)
[2021-01-19 03:40] VITALS: BP 142/66
== END 2021-01-19 03:40 | disposition home or self-care (01) ==
LOC: D.ER 21:52
PROVIDERS: Family Medicine
DX: J01.90 Acute sinusitis, unspecified (principal); J44.9 Chronic obstructive pulmonary disease, unspecified; J96.10 Chronic respiratory failure, unspecified whether with hypoxia or hypercapnia; I10 Essential (primary) hypertension; Z99.81 Dependence on supplemental oxygen; R50.9 Fever, unspecified